=== PATIENT | female | born 1960 | race Caucasian/White ===

== ENCOUNTER 2018-12-06 09:19 | Inpatient (IN) | payer OTHER ==
[2018-12-06 09:37] LABS: Base Excess-Venous -15.7 mmol/L (-2.0 to 3.0); Bicarbonate (HCO3v) 13.3 mmol/L (22.0-28.0); CO2 Tension (PvCO2) 45.4 mmHg (40.0-50.0); Calcium, Ionized 1.04 mmol/L (See Comments:); Chloride 109 mmol/L (98-107); Glucose 248 mg/dL (70-105); Hemoglobin - Calc 8.1 g/dL (12.0-16.0); Lactate 10.11 mmol/L (0.50-2.20); Potassium 7.2 mmol/L (3.5-5.1); Sodium 135 mmol/L (138-145); T. Carbon Dioxide 14.7 mmol/L (22.0-28.0); vO2 Saturation-calc 78.6 % (60.0-85.0)
[2018-12-06] MEDS ORDERED: Albuterol Sulfate 2.5 mg/0.5 ml Neb ONE (09:44)
[2018-12-06] MEDS ORDERED: Albuterol Sulfate 2.5 mg/3 ml Neb ONE (09:44)
[2018-12-06] MEDS ORDERED: EPINEPHrine 1 MG/10 ML Abboject SYRINGE ONE ×2 (09:46→11:11)
[2018-12-06 09:57] LABS: Analyzer IN Cardio ER; Base Excess (BEa) -19.9 mEq/L (-2.0 to +3.0); Calcium, Ionized 1.32 mmol/L (1.12-1.30); Carboxyhemoglobin (COHb) 4.6 gm% (0.0-3.0); Hemoglobin (Hb) 7.5 g/dL (12.0-16.0); Potassium - ABG Lab 5.29 mmol/L (3.70-5.30)
[2018-12-06 09:58] LABS: ALV-art Gradient 64.825 (0-20); CO2 Tension 79.5 mmHg (35.0-45.0); Puncture Site RRA; pH, Arterial 6.83 (7.35-7.45)
[2018-12-06] MEDS ORDERED: Fentanyl 100 MCG/2 ML VIAL ONE (10:02)
[2018-12-06 10:08] LABS: Hemoglobin 8.1 g/dL (12.0-16.0); Mean Corpuscular HGB CONC 30.5 g/dL (32.0-36.0); Mean Corpuscular Hemoglobin 29.7 pg (27.0-31.0); Mean Corpuscular Volume 97.3 fL (78.0-98.0); RBC Distribution Width 13.6 % (11.5-14.5); Red Blood Cell (RBC) Count 2.72 mill/uL (4.20-5.40)
[2018-12-06] MEDS ORDERED: Midazolam HCl 2 mg/2 ml Vial ONE (10:15)
[2018-12-06 10:32] LABS: Anisocytosis SLIGHT = 6-15 cells (100X) (0-5/hpf); Band 3 % (5-11); Large Platelets SLIGHT; Lymphocytes 46 % (21-51); MDiff Complete? YES; Mean Platelet Volume 7.8 fL (7.4-10.4); Metamyelocyte 1 % (0-0); Monocytes 5 % (0-10); Neutrophil 45 % (42-75); Nucleated RBC 2 % (0); Ovalocytes SLIGHT = 2-5 cells (100X) (0-1/hpf); Platelet Count 285 thou/uL (130-400); Platelet Morphology Comment Appears Adequate; Polychromasia MODERATE = 3-4 cells (100X) (0-2/hpf); White Blood Cell (WBC) Count 22.6 thou/uL (4.8-10.8)
[2018-12-06 10:35] LABS: Bilirubin Negative (Negative); Blood, Urine Negative (Negative); Clarity Clear (Clear); Glucose, Urine (Dipstick) Normal (Negative); Leukocyte Negative Leu/uL (Negative); Nitrite Negative (Negative); Protein, Urine (Dipstick) Negative (Neg-Trace); Urobilinogen Normal mg/dL (Less than 2)
--- NOTE | 2018-12-06 10:41 | CT ---
CT Brain WO Con: 12/06/2018 9:49 AM CLINICAL HISTORY: Altered mental status. COMPARISON: None. FINDINGS: Hemorrhage: None. Ventricular system: Normal in size and morphology for the patient's age. Cerebral parenchyma: Multifocal encephalomalacia is present bilaterally, involving left frontal and r ight occipital lobes. Superimposed mild chronic microvascular ischemic disease of cerebral white matter is present. Midline shift: None. Mass: No mass effect. Calvarium: Normal. Visualized Paranasal sinuses: Scattered mild inflammatory mucosal thickening. IMPRESSION: No acute intracranial abnormalities. Multifocal encephalomalacia, superimposed upon microvascular ischemic disease.
--- NOTE | 2018-12-06 10:41 | RAD ---
EXAM: CHEST ONE VIEW HISTORY: Central line placed COMPARISON: None FINDINGS: Endotracheal tube is noted in place with the tip overlying the T3-4 level and above the level of the josseline. A right internal jugular vein central venous catheter is also noted in place with tip overlying the region of the caval atrial junction. Dorsal column stimulator leads overlie the T8-9 le mei. Pacing device overlies the right mid chest and left upper quadrant of the abdomen. Cardiac silhouette and pulmonary vasculature magnified by projection but within normal limits.. There is linear atelectasis in the right midlung zone. The lungs are otherwise clear. Mild degenerative changes are seen in the spine. IMPRESSION: Lines and tubes in place as described above. No acute cardiopulmonary process is identified.
[2018-12-06 10:42] LABS: ALT (SGPT) 63 U/L (8-55); AST (SGOT) 138 U/L (5-34); Albumin 2.2 g/dL (3.5-5.0); Alkaline Phosphatase 166 U/L (40-110); Anion Gap 21 mmol/L (10-20); BUN (Urea Nitrogen) 27 mg/dL (9.8-20.1); Bilirubin, Total 0.2 mg/dL (0.2-1.2); Calc. Creatinine Clearance 0 mL/min (70-130); Calcium 8.3 mg/dL (7.8-10.44); Carbon Dioxide 14 mmol/L (22-29); Chloride 105 mmol/L (98-107); Estimated GFR-MDRD 55; Globulin 2.7 g/dL (2.4-3.5); Glucose 245 mg/dL (70-105); Protein, Total 4.9 g/dL (6.0-8.3); Sodium 133 mmol/L (136-145)
[2018-12-06 10:49] LABS: Medtox Reader # READER 1
[2018-12-06 10:50] LABS: Amphetamine Not Detected (NotDetected); Barbiturates Screen Not Detected (NotDetected); Benzodiazepine Screen Detected (NotDetected); Cocaine Metabolite Screen Not Detected (NotDetected); Medtox Control Line Valid? VALID (VALID); Methadone Not Detected (NotDetected); Methamphetamine Not Detected (NotDetected); Opiate Screen Detected (NotDetected); Oxycodone Screen Not Detected (NotDetected); Phencyclidine (PCP) Not Detected (NotDetected); THC/Cannabinoid Screen Not Detected (NotDetected); Tricyclic Screen Not Detected (NotDetected)
[2018-12-06 10:54] LABS: Potassium 7.4 mmol/L (3.5-5.1)
[2018-12-06 10:54] LABS: Actual Bicarbonate (HCO3a) 15.2 mEq/L (22-28); Analyzer IN Cardio ER; Base Excess (BEa) -12.6 mEq/L (-2.0 to +3.0); CO2 Tension 43.9 mmHg (35.0-45.0); Calcium, Ionized 1.14 mmol/L (1.12-1.30); Carboxyhemoglobin (COHb) 4.6 gm% (0.0-3.0); Hemoglobin (Hb) 6.7 g/dL (12.0-16.0); Potassium - ABG Lab 6.82 mmol/L (3.70-5.30)
[2018-12-06 10:55] LABS: ALV-art Gradient 120.825 (0-20); O2 Tension (PaO2) 38.2 mmHg (80.0-100.0); Puncture Site RFA; pH, Arterial 7.16 (7.35-7.45)
[2018-12-06] MEDS ORDERED: Cefepime 2 GM VIAL ONE ×2 (10:55→11:00)
[2018-12-06] MEDS ORDERED: Hydrocortisone Sod Succ/PF 100 mg/2 ml Vial ONE (10:55)
[2018-12-06] MEDS ORDERED: Norepinephrine 4 MG/4 ML VIAL ONE ×2 (10:59→14:56)
[2018-12-06] MEDS ORDERED: Calcium Chloride 1 GM/10 ML Abboject SYRINGE ONE (11:11)
[2018-12-06] MEDS ORDERED: Sodium Bicarb 50 MEQ/50 ML Abboject 8.4% SYRINGE ONE (11:11)
[2018-12-06] MEDS ORDERED: Sodium Bicarb 50 MEQ/50 ML VIAL ONE (11:15)
[2018-12-06 12:28] LABS: Actual Bicarbonate (HCO3a) 13.3 mEq/L (22-28); Analyzer IN Cardio ER; Base Excess (BEa) -12.8 mEq/L (-2.0 to +3.0); CO2 Tension 31.2 mmHg (35.0-45.0); Calcium, Ionized 1.07 mmol/L (1.12-1.30); Carboxyhemoglobin (COHb) 3.8 gm% (0.0-3.0); Hemoglobin (Hb) 6.5 g/dL (12.0-16.0); O2 Tension (PaO2) 69.3 mmHg (80.0-100.0); Potassium - ABG Lab 6.17 mmol/L (3.70-5.30); pH, Arterial 7.25 (7.35-7.45)
[2018-12-06 12:29] LABS: Puncture Site ALINE
[2018-12-06] MEDS ORDERED: Phenylephrine HCL 10 MG, Admixture Fee 1 EACH in Sodium Chloride 0.9% 250 ML 250 ML IV SCH (13:00)
[2018-12-06] MEDS ORDERED: Phenylephrine 10 MG/NS 250 ML 250 ML IVPB SCH (13:00)
[2018-12-06] MEDS ORDERED: Norepinephrine 8 MG in Dextrose 5% in Water 242 ML IVPB SCH (15:00)
[2018-12-06] MEDS ORDERED: Vancomycin HCl 1 GM in Premix Bag 1 BAG IVPB SCH (15:15)
[2018-12-06 15:56] LABS: Lactic Acid 15.8 mmol/L (0.5-2.2)
[2018-12-06] MEDS ORDERED: Sodium Chloride 0.9% 1,000 ML IV SCH (16:00)
[2018-12-06 16:04] VITALS: TEMP 90.9
[2018-12-06] MEDS ORDERED: EPINEPHrine 4 MG in Dextrose 5% in Water 250 ML IVP SCH (16:15)
[2018-12-06] MEDS ORDERED: Acetaminophen 325 MG TAB PO PRN (16:40)
[2018-12-06] MEDS ORDERED: Bisacodyl 5 MG TAB PO PRN (16:44)
[2018-12-06] MEDS ORDERED: Acetaminophen 650 MG Suppository PR PRN (16:44)
[2018-12-06] MEDS ORDERED: Norepinephrine 8 MG in Dextrose 5% in Water 242 ML IVPB PRN (16:44)
[2018-12-06] MEDS ORDERED: Ondansetron PF 4 MG/2 ML Vial IVP PRN (16:45)
[2018-12-06] MEDS ORDERED: Vasopressin 40 UNIT, Admixture Fee 1 EACH in Sodium Chloride 0.9% 100 ML IV PRN (16:46)
[2018-12-06] MEDS ORDERED: Potassium Phosphate 12 MMOL in Sodium Chloride 0.9% 250 ML 250 ML IV PRN (16:48)
[2018-12-06] MEDS ORDERED: Potassium Phosphate 9 MMOL in Sodium Chloride 0.9% 100 ML IVPB PRN (16:48)
[2018-12-06] MEDS ORDERED: Potassium Phosphate 15 MMOL in Sodium Chloride 0.9% 250 ML 250 ML IV PRN (16:48)
[2018-12-06] MEDS ORDERED: PHOS-NAK 1 PKT PACK PO PRN ×2 (16:48)
[2018-12-06] MEDS ORDERED: Potassium Chloride 20 MEQ TAB PO PRN (16:48)
[2018-12-06] MEDS ORDERED: Magnesium Oxide 400 MG TAB PO PRN ×2 (16:48)
[2018-12-06] MEDS ORDERED: Potassium Chloride 40 MEQ in Premix Bag 1 BAG IVPB PRN (16:48)
[2018-12-06] MEDS ORDERED: Potassium Chloride 40 MEQ in Sodium Chloride 0.9% 250 ML 250 ML IVPB PRN (16:48)
[2018-12-06] MEDS ORDERED: Magnesium 2 GM/50 ML 2 GM in Premix Bag 1 BAG IVPB PRN (16:48)
[2018-12-06] MEDS ORDERED: CCU ELECTROLYTE REPLACEMENT PROTOCOL FS PRN (16:48)
--- NOTE | 2018-12-06 16:49 | PDOC.FMACP ---
Advance Care Planning - Problem (1) Cardiac arrest Status: Acute Code(s): I46.9 - CARDIAC ARREST, CAUSE UNSPECIFIED (2) Acute respiratory failure Status: Acute Code(s): J96.00 - ACUTE RESPIRATORY FAILURE, UNSP W HYPOXIA OR HYPERCAPNIA - Note Participants: family Summary: Advanced Care Planning was discussed with patient's . The diagnosis, prognosis and goals of care were discussed. Appropriate forms and documentation to accomplish the goals of care were discussed. All questions were answered. The Palliative Care Team will be engaged to assist with completion of any outstanding forms that are needed. Family wishes for patient to be Chemical Code only. Pt is currently on three pressors. Time Spent (mins): 17
[2018-12-06] MEDS ORDERED: Nicotine 21 MG PATCH TD SCH (17:00)
[2018-12-06] MEDS ORDERED: CCU Electrolyte Replacement 1 EACH IVPB ONE (17:00)
[2018-12-06] MEDS ORDERED: HumaLOG 300 UNITS/3 ML VIAL SC PRN (17:08)
[2018-12-06] MEDS ORDERED: Dextrose 5% in Water 1,000 ML IV PRN (17:08)
[2018-12-06] MEDS ORDERED: Dextrose 50% Abboject 50 ML SYRINGE SLOW IVP PRN (17:08)
[2018-12-06] MEDS ORDERED: Albuterol Sulfate 2.5 mg/3 ml Neb NEB SCH (17:30)
[2018-12-06] MEDS ORDERED: Insulin Regular 300 UNITS/3 ML VIAL IVP SCH (18:00)
[2018-12-06] MEDS ORDERED: Dextrose 50% Abboject 50 ML SYRINGE SLOW IVP SCH (18:00)
--- NOTE | 2018-12-06 18:05 | HP ---
PRIMARY CARE PROVIDER: Dr. Roman Jaeger. CHIEF COMPLAINT: Cardiac arrest. HISTORY OF PRESENT ILLNESS: Ms. Lipscomb is a 58-year-old lady, who was seen at [facility] on December 06, 2018. The patient is currently intubated and mechanically ventilated, unable to provide any history. Collateral history was obtained from the patient's family by the bedside, review of records, and discussion with emergency room physician. Ms. Luna has a history of coronary artery disease, status post PCI with stents three years ago. According to her sister, recently there was also discussion that she may need an AICD. She was found slumped over in her chair by family this morning. The patient's daughter began CPR. EMS arrived and the patient had a faint pulse initially followed by asystole. She had CPR for 55 minutes. She received a total of 7 epinephrine and 2 bicarb doses en route to the emergency room. The patient reportedly had holes in her clothes from cigarette butts and the floor around the patient on their arrival had lot of cigarette butts and pills. In the emergency room, the patient did not have pulse. She was in asystole and had CPR performed. She also had runs of pulseless electrical activity. After prolonged attempt at resuscitation, there was return of spontaneous circulation. The patient is currently intubated and mechanically ventilated. REVIEW OF SYSTEMS: Could not be completed secondary to the patient's nonverbal status. PAST MEDICAL HISTORY: Congestive heart failure, coronary artery disease status post PCI with stents, chronic back pain, diabetes mellitus, neuropathy, and myocardial infarction. PAST SURGICAL HISTORY: Cholecystectomy, PCI with coronary stents, tonsillectomy, and hysterectomy. SOCIAL HISTORY: No history of alcohol use or recreational drug use. The patient is a current smoker, smoking 3 packs of cigarettes a day. ALLERGIES: NO KNOWN DRUG ALLERGIES. CURRENT MEDICATIONS: 1. Aspirin 81 mg daily. 2. Atorvastatin 40 mg daily. 3. Coreg 12.5 mg 2 times a day. 4. Clonidine 0.1 mg every 6 hours as needed. 5. Furosemide 40 mg daily. 6. Lisinopril 5 mg daily. 7. Potassium chloride 10 mEq daily. 8. Meloxicam 15 mg daily. 9. Allopurinol 300 mg daily. 10. Glimepiride 1 mg daily. PHYSICAL EXAMINATION: GENERAL: On examination, Ms. Lipscomb is intubated and mechanically ventilated. VITAL SIGNS: She weighs 197 pounds. She is currently on pressors, with a blood pressure of 83/44, heart rate of 46. She is hypothermic, with a temperature of 90.9 degrees Fahrenheit. Respiratory rate is 9. EYES: No scleral icterus, no conjunctival pallor. ENT: Moist mucosal membranes, the patient has OG tube and endotracheal tube. NECK: No cervical lymphadenopathy. RESPIRATORY: Accessory muscles of breathing are not active. Chest wall movements are symmetric bilaterally. Lungs are clear to auscultation without wheeze, rhonchi, or crepitations. CARDIOVASCULAR: S1 and S2 are heard, regular. No pericardial rub. NEUROLOGIC: Full neurologic examination was not possible secondary to the patient's noncooperation. Pupils are 5 mm bilaterally, nonreactive to light. There is no facial droop. She has bilateral extensor reflex. MUSCULOSKELETAL: No spontaneous movements of the extremities. SKIN: Multiple abdominal wall and sacral wounds as documented by nursing staff. LYMPHATIC: No cervical lymphadenopathy. PSYCHIATRIC: Unable to assess mood, affect, or orientation to person, place, or time. LABORATORY DATA: Ms. Lipscomb's labs and investigations were reviewed. I reviewed her electrocardiogram, which shows sinus bradycardia, no ST changes to suggest an acute coronary syndrome. I also reviewed her chest x-ray, which shows endotracheal tube and right internal jugular vein central venous catheter. There are no pulmonary infiltrates. She has elevated white count of 22,600, of which 45% are neutrophils. She has normocytic anemia with hemoglobin of 8.1. Platelet count is normal. Initial arterial blood gases showed pH of 6.83, pCO2 of 79.5, and pO2 of 121, on ventilator. She has decreased sodium of 133, elevated potassium of 7.2, normal creatinine. Lactic acid level is elevated at 15.8. Total bilirubin is normal. AST is elevated at 138, ALT 63, and alkaline phosphatase 166. Urinalysis is negative for nitrite and leukocyte esterase. Urine toxicology screen detected opiates and benzodiazepines. ASSESSMENT AND PLAN: Ms. Lipscomb is a 58-year-old lady, who was seen at [facility] on December 06, 2018. Her problem list includes: 1. Cardiac arrest: Ms. Lipscomb is presenting with cardiac arrest. She had prolonged cardiopulmonary resuscitation with return of spontaneous circulation. She is currently intubated and mechanically ventilated. She will be admitted to the hospital for further management. 2. Acute hypercapnic respiratory failure: Most likely secondary to cardiac arrest. She is currently on the ventilator, mechanically ventilated. She will be managed in the critical care unit. Pulmonology Service has been consulted by emergency room physician. 3. Hyperkalemia: The patient will be administered Kayexalate, beta agonist nebulizers, insulin followed by dextrose. We will recheck potassium level. 4. Diabetes mellitus, type 2: We will start Accu-Cheks and insulin sliding scale. 5. Shock: Differential includes both septic shock as well as cardiogenic shock. The patient is being started on pressors, which I will continue. We will also continue vancomycin and cefepime, which she has received in the emergency room. 6. Wounds: The patient has multiple wounds, could be contributing to septic shock. As mentioned, we will continue cefepime and vancomycin. 7. Coronary artery disease: I cannot rule out myocardial infarction or arrhythmias as a cause for her being unresponsive this morning. We will monitor on telemetry. We will also consult Cardiology Service. 8. The patient is critically ill, prognosis is guarded. I discussed her case with her . After discussion, wants the patient to be chemical code only. She will continue to be intubated and receive all active treatments, but if there is cardiac arrest, she will not have CPR or electric shocks. Many thanks for allowing me to participate in your patient's care. Please feel free to contact me with any questions or concerns. LEVEL OF RISK: High. LEVEL OF COMPLEXITY: High. Job ID: [id number]
[2018-12-06] MEDS ORDERED: Cefepime 2 GM in Sodium Chloride 0.9% 100 ML IVPB SCH (23:00)
[2018-12-07] MEDS ORDERED: Enoxaparin Sodium 40 MG/0.4 ML SYRINGE SC SCH (09:00)
[2018-12-07] MEDS ORDERED: Vancomycin HCl 1.5 GM in Sodium Chloride 0.9% 250 ML 300 ML IVPB SCH (12:00)
--- NOTE | 2018-12-08 08:23 | DIS ---
DATE OF ADMISSION: 12/06/2018 DATE OF DISCHARGE: 12/06/2018 PRIMARY CARE PROVIDER: Dr. Roman Jaeger. The patient on December 06, 2018. DIAGNOSES: 1. Acute hypercapnic respiratory failure. 2. Cardiac arrest. 3. Hyperkalemia. 4. Diabetes mellitus type 2. 5. Shock, most likely cardiogenic. 6. Pressure wounds, present on admission. HOSPITAL COURSE: Ms. Lipscomb is a 58-year-old lady, who was admitted to [facility] on December 06, 2018 following prolonged cardiopulmonary resuscitation. Please refer to my history and physical note dated December 06, 2018 for further details. She was admitted to the Critical Care Unit. After discussion with family members, the patient was chemical code only. Family did not wish for cardiopulmonary resuscitation. At 1733 hours, The patient had asystole. She was pronounced . Many thanks for allowing me to participate in your patient's care. Please feel free to contact me with any questions or concerns. Job ID: [id number]
--- NOTE | 2018-12-09 16:56 | EKG ---
Test Reason : CA Blood Pressure : / mmHG Vent. Rate : 057 BPM Atrial Rate : 057 BPM P-R Int : 154 ms QRS Dur : 102 ms QT Int : 498 ms P-R-T Axes : 032 054 005 degrees QTc Int : 484 ms Sinus bradycardia Possible Inferior infarct , age undetermined Abnormal ECG Confirmed by VAZQUEZ JOHNSON DO ([id number]), acquisitions editor LILI SANTANA ([id number]) on 12/09/2018 4:56:04 PM Referred By: Confirmed By:VAZQUEZ JOHNSON DO
== END 2018-12-06 17:33 | disposition expired | DRG 208 ==
LOC: ERS 09:19 → CCU 15:26
PROVIDERS: ADMIT Internal Medicine; ATTEND Internal Medicine
PROC: 5A12012 Performance of Cardiac Output, Single, Manual (ICD-10-PCS; principal; 2018-12-06)
PROC: 5A1935Z Respiratory Ventilation, Less than 24 Consecutive Hours (ICD-10-PCS; 2018-12-06)
PROC: 0BH17EZ Insertion of Endotracheal Airway into Trachea, Via Natural or Artificial Opening (ICD-10-PCS; 2018-12-06)
PROC: 05HM33Z Insertion of Infusion Device into Right Internal Jugular Vein, Percutaneous Approach (ICD-10-PCS; 2018-12-06)
PROC: B543ZZA Ultrasonography of Right Jugular Veins, Guidance (ICD-10-PCS; 2018-12-06)
PROC: 3E033XZ Introduction of Vasopressor into Peripheral Vein, Percutaneous Approach (ICD-10-PCS; 2018-12-06)
DX: J96.22 Acute and chronic respiratory failure with hypercapnia (principal); R40.2112 Coma scale, eyes open, never, at arrival to emergency department; R40.2212 Coma scale, best verbal response, none, at arrival to emergency department; R40.2312 Coma scale, best motor response, none, at arrival to emergency department; F17.210 Nicotine dependence, cigarettes, uncomplicated; I25.10 Atherosclerotic heart disease of native coronary artery without angina pectoris; M54.9 Dorsalgia, unspecified; G89.29 Other chronic pain; E87.5 Hyperkalemia; R57.0 Cardiogenic shock; L89.95 Pressure ulcer of unspecified site, unstageable; Z90.49 Acquired absence of other specified parts of digestive tract; I25.2 Old myocardial infarction; Z79.82 Long term (current) use of aspirin; Z95.5 Presence of coronary angioplasty implant and graft; Z79.84 Long term (current) use of oral hypoglycemic drugs
CPT/HCPCS: 36415; 70450; 71045; 80053; 80306; 81003; 82330; 82435; 82565; 82803; 82805; 82947; 83605; 84132; 84295; 85014; 85025; 87040; 93005; 94002; 94644; J0171; J0692; J1720; J2250; J2370; J3010; J3370; J3490; J7050; J7070; J7611